=== PATIENT | female | born 1970 | race Caucasian/White ===

== ENCOUNTER 2024-02-15 11:00 | Outpatient (RCR) | payer OTHER, SELFPAY | END 2024-06-14 23:59 | disposition home or self-care (01) | PROVIDERS: Visit Provider Family Medicine | DX: M25.562 Pain in left knee (principal); M25.561 Pain in right knee; M54.6 Pain in thoracic spine; G89.29 Other chronic pain; M50.20 Other cervical disc displacement, unspecified cervical region; M79.18 Myalgia, other site; R29.3 Abnormal posture; Z74.09 Other reduced mobility; Z51.89 Encounter for other specified aftercare | CPT/HCPCS: 97110; 97162 ==